=== PATIENT | male | born 1995 | race African-American/Black ===

== ENCOUNTER 2025-06-02 11:15 | Emergency (ER) | payer BC ==
[2025-06-02] MEDS ORDERED: Bacitracin 1 PK ONE (11:49)
== END 2025-06-02 12:30 | disposition home or self-care (01) ==
LOC: ERS 11:15
DX: S61.217A Laceration without foreign body of left little finger without damage to nail, initial encounter (principal); W26.0XXA Contact with knife, initial encounter
CPT/HCPCS: 12001; 90715; 99282